=== PATIENT | female | born 1995 ===

== ENCOUNTER 2018-05-18 21:23 | Emergency (ER) | payer MEDICAID ==
[2018-05-18 21:58] VITALS: BP 121/82; PULSE 68; RESP 16; TEMP 98.6; O2SAT 100
--- NOTE | 2018-05-18 22:43 | C.PDOC ---
History Of Present Illness The patient with PMHx Allergic reactions, states that she had frozen yogurt this evening and developed a feeling of swelling in the throat. Patient reports that she took 40mg of Prednisone and 2 tablespoon of benadryl around 8pm, but still felt mild symptoms which prompted visit. Denies wheezing, chest pain, SOB , travel, fever, numbness, weakness. Time Seen by Provider: 05/18/18 22:21 Chief Complaint (Nursing): Allergic Reaction History Per: Patient History/Exam Limitations: no limitations Onset/Duration Of Symptoms: Gradual, Sudden Onset Current Symptoms Are (Timing): Better Context: Food Home/EMS Treatment: Benadryl, Steroids Recent travel outside of the [place]: No Past Medical History Vital Signs: Last Vital Signs Temp 98.6 F 05/18/18 21:50 Pulse 68 05/18/18 21:50 Resp 16 05/18/18 21:50 BP 121/82 05/18/18 21:50 Pulse Ox 100 05/18/18 22:46 - Medical History PMH: Asthma Family History: States: Other Other Family History: Asthma, Allergy - Social History Hx Alcohol Use: No Hx Substance Use: No - Immunization History Hx Tetanus Toxoid Vaccination: No Hx Influenza Vaccination: No Hx Pneumococcal Vaccination: No Review Of Systems Constitutional: Negative for: Fever, Chills Eyes: Negative for: Pain ENT: Negative for: Ear Pain Cardiovascular: Negative for: Chest Pain Respiratory: Negative for: Shortness of Breath Gastrointestinal: Negative for: Vomiting Skin: Negative for: Rash Neurological: Negative for: Weakness, Numbness Physical Exam - Physical Exam Appears: Non-toxic, No Acute Distress Skin: Normal Color, Warm, No Rash Head: Atraumatic, Normacephalic Eye(s): bilateral: Normal Inspection, PERRL, EOMI Oral Mucosa: Moist Tongue: Normal Appearing, No Swelling Lips: Normal Appearing, No Swelling Throat: No Erythema, No Exudate, No Drooling, Other (No swelling of the uvula) Neck: Normal ROM, Supple Chest: Symmetrical, No Tenderness Cardiovascular: Rhythm Regular, No Friction Rub, No Murmur Respiratory: Normal Breath Sounds, No Rales, No Rhonchi, No Stridor, No Wheezing Extremity: Normal ROM, Capillary Refill (< 2 sec), No Swelling Neurological/Psych: Oriented x3, Normal Speech, Normal Motor Gait: Steady ED Course And Treatment O2 Sat by Pulse Oximetry: 100 (on RA) Pulse Ox Interpretation: Normal Medical Decision Making Medical Decision Making: The patient reports that she feels improved. Airways remain patent. Lungs are CTA, heart is RRR. The patient is ambulatory in the ED with steady gait. Disposition - Disposition Referrals: [facility] [Outside] Disposition: HOME/ ROUTINE Disposition Time: 22:43 Condition: GOOD Additional Instructions: Follow up with the medical doctor within 1-2 days without fail. Return if worsened. Prescriptions: DiphenhydrAMINE [Benadryl] 25 mg PO QID #28 cap Epinephrine HCl [Epipen Auto-Injector] 0.3 mg MR ONCE PRN #1 ml PRN Reason: Anaphylaxis Famotidine [Pepcid] 20 mg PO BID #20 tab predniSONE [Prednisone] 20 mg PO BID #10 tab Instructions: Food Allergy Forms: [facility] (Malay) - Clinical Impression Clinical Impression: Allergic reaction
== END 2018-05-18 23:04 | disposition home or self-care (01) ==
LOC: C.ER 21:23
DX: T78.49XA Other allergy, initial encounter (principal); X58.XXXA Exposure to other specified factors, initial encounter